=== PATIENT | male | born 1945 | race Caucasian/White ===

== ENCOUNTER 2020-09-19 10:58 | Observation (INO) | payer MEDICARE ==
[~2020-09-19] VITALS: Ht 182.9 cm; Wt 91.2 kg
[~2020-09-19 10:58] MED LIST: ACET-2065 PO; FINA5TAB4 PO; LEVO75TA5 PO
[2020-09-19 11:37] VITALS: BP 127/89
[2020-09-19] MEDS ORDERED: APIX5TAB PO (11:59)
[2020-09-19] MEDS ORDERED: PLEASE ENTER HEIGHT AND WEIGHT MC SCH (12:00)
[2020-09-19] MEDS ORDERED: SODIUM CHLORIDE 0.9% 1,000 ML IV SCH (12:00)
[2020-09-19 12:25] LABS: BASOPHILS % (AUTO) 1 % (0-1); EOSINOPHILS % (AUTO) 1 % (1-7); LYMPHOCYTES % (AUTO) 20 % (22-44); MD NO; MEAN CORPUSCULAR HEMOGLOBIN 29.1 pg (27.5-34.5); MEAN CORPUSCULAR HGB CONC 33.2 g/dL (33.2-36.2); MEAN PLATELET VOLUME 7.9 fL (7.4-10.4); MONOCYTES % (AUTO) 10 % (2-9); NEUTROPHILS % (AUTO) 69 % (42-75); PLATELET COUNT 257 x10^3/uL (130-400); RED BLOOD COUNT 4.91 x10^6/uL (4.38-5.82); RED CELL DISTRIBUTION WIDTH 16.3 % (9.4-14.8)
[2020-09-19 12:33] LABS: ANION GAP 8 mmol/L (5-15); CALCIUM 9.1 mg/dL (8.5-10.1); CHLORIDE 111 mmol/L (98-107); CREATININE 0.96 mg/dL (0.7-1.3)
[2020-09-19] MEDS ORDERED: MIDAZOLAM 1 MG/ML, 2ML ONE (12:35)
[2020-09-19] MEDS ORDERED: FENTANYL PF 250 MCG/5ML ONE (12:35)
[2020-09-19] MEDS ORDERED: DEXAMETHASONE 4 MG/ML, 5ML ONE (12:38)
[2020-09-19] MEDS ORDERED: ONDANSETRON 2MG/ML, 2ML ONE (12:38)
[2020-09-19] MEDS ORDERED: CEFAZOLIN 1,000 MG ONE (12:38)
[2020-09-19] MEDS ORDERED: LIDOCAINE 1%, 20ML ONE (13:03)
[2020-09-19] MEDS ORDERED: ROCURONIUM 10MG/ML,5ML ONE (14:32)
[2020-09-19] MEDS ORDERED: PROPOFOL 10 MG/ML, 20ML ONE (14:32)
[2020-09-19] MEDS ORDERED: HEPARIN 1,000 UNITS/ML, 10ML ONE ×2 (14:32)
[2020-09-19] MEDS ORDERED: SUGAMMADEX 200 MG/2 ML IVPush ONE (14:32)
[2020-09-19] MEDS ORDERED: LABETALOL 5MG/ML, 20ML IV PRN (15:00)
[2020-09-19] MEDS ORDERED: HYDROmorphone 1 MG/ML, 1ML INJ IVPush PRN (15:00)
[2020-09-19] MEDS ORDERED: ONDANSETRON 2MG/ML, 2ML IVPush PRN (15:00)
[2020-09-19] MEDS ORDERED: DIPHENHYDRAMINE 50 MG/ML, 1ML IVPush PRN (15:00)
[2020-09-19] MEDS ORDERED: MEPERIDINE/PF 25MG/0.5ML IVPush PRN (15:00)
[2020-09-19] MEDS ORDERED: PROMETHAZINE 25 MG/ML, 1ML IVPush PRN (15:00)
[2020-09-19] MEDS ORDERED: PROMETHAZINE 12.5 MG SUPP PR PRN (15:00)
[2020-09-19] MEDS ORDERED: ALBUTEROL SULFATE 2.5 MG/3 ML NPPB PRN (15:00)
[2020-09-19] MEDS ORDERED: DIAZEPAM 5 MG/ML, 2ML IVPush PRN (15:00)
[2020-09-19] MEDS ORDERED: MIDAZOLAM 1 MG/ML, 2ML IV PRN (15:00)
[2020-09-19] MEDS ORDERED: EPHEDRINE 50 MG/ML, 1ML IVPush PRN (15:00)
[2020-09-19] MEDS ORDERED: OXYcodone 5 MG/5 ML ORAL.SOL UDC PO PRN (15:00)
[2020-09-19] MEDS ORDERED: hydrALAzine 20 MG/ML, 1ML IV PRN (15:00)
[2020-09-19] MEDS ORDERED: FENTANYL PF 100 MCG/2ML IV PRN (15:00)
[2020-09-19] MEDS ORDERED: ACETAMINOPHEN 325 MG TABLET PO PRN ×2 (15:00)
[2020-09-19] MEDS ORDERED: APIXABAN 5 MG TABLET ONE (15:23)
[2020-09-19 18:13] VITALS: BP 107/71
[2020-09-19 20:00] VITALS: BP 113/73
[2020-09-19] MEDS ORDERED: APIXABAN 5 MG TABLET PO SCH (21:00)
[2020-09-19] MEDS: APIXABAN 5 MG TABLET PO SCH (21:17)
[2020-09-20 02:19] VITALS: BP 108/61
[2020-09-20] MEDS ORDERED: LEVOTHYROXINE 75 MCG TABLET PO SCH (06:00)
[2020-09-20 08:00] VITALS: BP 105/66
[2020-09-20] MEDS ORDERED: FINASTERIDE 5 MG TABLET PO SCH (09:00)
[2020-09-20] MEDS: APIXABAN 5 MG TABLET PO SCH (09:20)
== END 2020-09-20 11:45 | disposition home or self-care (01) ==
LOC: CACL 10:58 → 5SO 14:54 → DCLOUNGE 09-20 11:35
PROVIDERS: ADMIT Internal Medicine Cardiovascular Disease; ATTEND Internal Medicine Cardiovascular Disease
DX: I48.91 Unspecified atrial fibrillation (principal); Z20.822 Contact with and (suspected) exposure to COVID-19; I48.92 Unspecified atrial flutter; Z79.01 Long term (current) use of anticoagulants; Z79.899 Other long term (current) drug therapy; Z95.0 Presence of cardiac pacemaker
CPT/HCPCS: 36415; 71046; 80048; 85025; 85347; 93005; 93462; 93613; 93621; 93653; 93655; 93662; C1730; C1732; C1759; C1766; C1769; C1894; C8929; G0378; J0690; J1100; J1644; J2250; J2405; J2704; J3010; J3490; Q9957; U0003; 93657